=== PATIENT | female | born 1955 | race Caucasian/White ===

== ENCOUNTER 2023-07-08 18:02 | Emergency (ER) | payer BC ==
--- NOTE | 2023-07-08 20:05 | ED Physician Documentation ---
PD HPI HEAD INJURY - Stated complaint Stated Complaint: GLF/HEAD LAC - Chief complaint Chief Complaint: Trauma Hd/Nk - History obtained from History obtained from: Patient - Additional information Additional information: HPI from patient. Patient fell at home today, approximately 5:30 PM this afternoon while taking clothes down from a clothesline that was indoors. Patient is unsure why she fell, but her description of events sounds like loss of balance is the most likely explanation. She struck her head and sustained occipital scalp laceration; unclear what she struck her head against. Patient denies loss of consciousness, denies headache. She also denies visual changes, denies confusion, nausea/vomiting. Her only other injury is to the left forearm where she sustained superficial abrasions. Last tetanus immunization was 10 years and 1 month ago. She does not take any blood-thinning medication Review of Systems Eyes: denies: Loss of vision, Decreased vision GI: denies: Nausea, Vomiting Skin: reports: Abrasion (s), Laceration (s) Musculoskeletal: reports: Extremity pain (mild left FA). denies: Neck pain, Back pain, Joint pain, Extremity swelling, Pain with weight bearing Neurologic: reports: Head injury. denies: Generalized weakness, Focal weakness, Numbness, Confused, Altered mental status, Headache, LOC PD PAST MEDICAL HISTORY - Past Medical History Past Medical History: Yes Endocrine/Autoimmune: Other Other Past Medical History: CKD, gout, thyroid cancer - Past Surgical History Past Surgical History: Yes - Present Medications Home Medications: Ambulatory Orders Medication Instructions Recorded Confirmed Levothyroxine Sodium [Synthroid] 112 mcg PO DAILY 07/08/23 07/08/23 - Allergies Allergies/Adverse Reactions: Allergies Allergy/AdvReac Type Severity Reaction Status Date / Time amoxicillin Allergy Hives Verified 07/08/23 18:23 - Social History Does the pt smoke?: No Smoking Status: Never smoker PD ED PE NORMAL - Vitals Vital signs reviewed: Yes - General General: Alert and oriented X 3, No acute distress, Well developed/nourished - HEENT HEENT: PERRL, EOMI - Neck Neck: No bony TTP - Cardiac Cardiac: RRR - Respiratory Respiratory: No respiratory distress, Clear bilaterally - Extremities Extremities: No deformity, No tenderness to palpate, Normal ROM s pain, Other (superficial abrasions to dorsum of left FA. no bony tenderness and ROM is intact (elbow, wrist, FA (supination, pronation))) - Neuro Neuro: Alert and oriented X 3, web retailer 2-12 intact, No motor deficit, No sensory deficit, Normal speech Eye Opening: Spontaneous Motor: Obeys Commands Verbal: Oriented GCS Score: 15 PD ED PE EXPANDED - HEENT HEENT Visual: 1 - laceration (2 cm length with exposed underlying adipose tissue; no bony step-off nor TTP) - Extremities Extremities: Other (superficial linear abrasions to extensor surface of left forearm. no bony tenderness. FROM left elbow, wrist) Results - Vitals Vitals: Oxygen O2 Source Room air Procedures - Laceration (location) Scalp Length in cm: 2 Wound type: Linear, Into subcut fat, Clean Neurovascular status: Sensory intact, Motor intact, Vascular intact Anesthesia: Lidocaine 1% Wound preparation: Chlorhexadine, Wound explored Skin layer closure: Bricelyn Other: Patient tolerated well, No complications, Neurovascular intact, Tetanus booster given PD Medical Decision Making - ED course Complexity details: reviewed results, re-evaluated patient, considered differential, d/w patient ED course: Scalp laceration repaired as noted above under procedure note. Bacitracin is applied to the stapled wound as well as to the left forearm abrasions. No emergent testing indicated at this time. Return precautions discussed. She is advised to follow-up with PCP in 1 week for removal of the rula. Departure - Departure Disposition: 01 Home, Self Care Clinical Impression: Scalp laceration, Fall, Abrasion forearm Condition: Good Instructions: ED Abrasion, ED Laceration Scalp Stitch Or Stap Follow-Up: CALLI BOWEN MD [Primary Care Provider] - Comments: 5 rula were used to repair the scalp laceration. You need to follow-up with your primary care provider in 7 to 10 days to have these removed. Call tomorrow to your primary care provider's office to arrange for an appointment within that timeframe. Forms: PCP List Discharge Date/Time: 07/08/23 21:54
[2023-07-08] MEDS: TETANUS/DIPHTHERIA/PERTUSSIS 0.5 ML SYRINGE IM ONE (20:48)
[2023-07-08] MEDS: LIDOCAINE 1% 2 ML VIAL SUBQ STA (21:53)
[2023-07-08] MEDS: BACITRACIN ZINC OINT 1 PACKET TOP STA (21:53)
[2023-07-08 22:03] VITALS: BP 140/88; O2SAT 100
== END 2023-07-08 21:54 | disposition home or self-care (01) ==
LOC: ED 18:02
DX: S01.01XA Laceration without foreign body of scalp, initial encounter (principal); S50.812A Abrasion of left forearm, initial encounter; W18.30XA Fall on same level, unspecified, initial encounter; Y93.E2 Activity, laundry; Y92.009 Unspecified place in unspecified non-institutional (private) residence as the place of occurrence of the external cause; N18.9 Chronic kidney disease, unspecified; Z23 Encounter for immunization; Z79.899 Other long term (current) drug therapy
CPT/HCPCS: 12001; 90471; 99283